=== PATIENT | male | born 1960 | race Caucasian/White ===

== ENCOUNTER 2023-05-16 16:44 | Emergency (ER) | payer OTHER ==
[~2023-05-16] VITALS: Ht 175.3 cm; Wt 83.9 kg
[2023-05-16 17:00] LABS: BASOPHILS 0.3 % (0-2); EOSINOPHILS 0.1 % (0-6); HEMATOCRIT 50.3 % (35.0-50.0); HEMOGLOBIN 17.3 g/dL (12.0-18.0); LYMPHOCYTES 7.5 % (24-44); MCH 33.6 (27-36); MCHC 34.4 g/dl (30-36); MCV 97.8 fl (81-99); MONOCYTES 7.6 % (0-12); NEUTROPHILS 84.5 % (39-80); PLATELET COUNT 207 K/uL (140-440); RBC 5.14 M/ul (4.3-5.7); RDW 12.9 (10.5-15.0)
[2023-05-16 17:21] LABS: ALBUMIN 3.3 g/dL (3.4-5.0); ALBUMIN/GLOBULIN RATIO 0.75 (1.1-2.4); ANION GAP 14.3 (7-21); BILIRUBIN, TOTAL 0.9 ng/dL (0.2-1.0); BUN/CREATININE RATIO 20.61 (6.0-28.6); CALCIUM 9.2 mg/dL (8.5-10.1); CREATININE, SERUM 0.97 mg/dL (0.70-1.30); MAGNESIUM 1.6 mg/dL (1.8-2.4); POTASSIUM 4.3 mmol/L (3.5-5.1); PROTEIN, TOTAL 7.7 g/dL (6.4-8.2)
[2023-05-16 17:43] LABS: INFLUENZA B NAA NEGATIVE (NEGATIVE); RESPIRATORY SYNCYTIAL VIR NAA NEGATIVE (NEGATIVE)
[2023-05-16] MEDS ORDERED: PREDNISONE20 MG PO (18:29)
[2023-05-16] MEDS ORDERED: DOXYCYCLINE HY100 MG PO (18:29)
[2023-05-16] MEDS ORDERED: VENTOLIN HFA18 GM INH (18:29)
[2023-05-16 18:47] VITALS: BP 143/92
--- NOTE | 2023-05-16 23:05 | EKG ---
[facility] [address] [facility] [place] [address] Signed Sinus tachycardia Otherwise normal ECG No previous ECGs available Confirmed by Ariel Nielsen MD () on 05/16/2023 11:04:56 PM Electronically Signed By: ARIEL NIELSEN MD 05/16/23 2305 PATIENT NAME: FAIZA DUGGAN Electrocardiogram DATE OF : 62 PHYSICIAN: ARIEL NIELSEN MD REPORT #: [id number] REPORT IS CONFIDENTIAL AND NOT TO BE RELEASED WITHOUT AUTHORIZATION
== END 2023-05-16 18:43 | disposition home or self-care (01) ==
LOC: ED 16:44
PROVIDERS: Emergency Medicine
DX: J44.1 Chronic obstructive pulmonary disease with (acute) exacerbation (principal); F17.200 Nicotine dependence, unspecified, uncomplicated; Z20.822 Contact with and (suspected) exposure to COVID-19
CPT/HCPCS: 36415; 71045; 80053; 83735; 83880; 84484; 85025; 87502; 93005; 93010; 94640; 99285-25; 99406; C9803; J7512; U0002

== ENCOUNTER 2023-12-18 07:27 | Day surgery (SDC) | payer MEDICARE, OTHER ==
[2023-12-16 16:08] VITALS: BP 133/72
[~2023-12-18] VITALS: Ht 175.3 cm; Wt 86.4 kg
[~2023-12-18 07:27] MED LIST: DOXYCYCLINE HY100 MG PO; IBLOOD GLUCOSE TEST STRIP 1 EA TEST VI PRN; LACTATED RINGER'S 1,000 ML IV SCH; LEVOFLOXACIN500 MG PO; LIDOCAINE HCL 1% 5 ML SDV INJ ONE; METRONIDAZOLE500 MG PO; MIDAZOLAM HCL 5 MG/5 ML VIAL IV PRN; PREDNISONE20 MG PO; VENTOLIN HFA18 GM INH; fentaNYL citrate 100 MCG/2 ML VIAL IV PRN; propofoL 200 MG/20 ML VIAL ONE
[2023-12-18 07:37] VITALS: BP 122/78
[2023-12-18] MEDS ORDERED: ADVIL200 M1 PO (07:41)
--- NOTE | 2023-12-18 09:16 | NUR ---
12/18/23 0916 Kelly,Parul 0910 PT ARRIVED TO PACU ON 10L VIA MASK, RESP EVEN AND UNLABORED BUT SHALLOW. ORAL AIRWAY IN PLACE, PT NONAROUABLE TO TECTILE STIMULI. VSS. 0914 O2 DECREASED TO 6L.
[2023-12-18 09:46] VITALS: BP 129/81
--- NOTE | 2023-12-18 10:25 | OR ---
[facility] [address] [place], [place] [address] Signed DATE OF OPERATION: 12/18/2023 SURGEON: Florence Garcia MD PREOPERATIVE DIAGNOSIS: Recent episode of sigmoid diverticulitis. POSTOPERATIVE DIAGNOSES: 1. Moderate sigmoid and left colon diverticulosis. 2. Narrow distal sigmoid colon. 3. 6 mm polyp at 40 cm in sigmoid colon. 4. 3 mm periappendiceal polypoid lesion at base of cecum. 5. 5 mm polyp, proximal right colon. 6. Moderate external hemorrhoids. PROCEDURES: Colonoscopy, hot biopsy and snare polypectomy. ESTIMATED BLOOD LOSS: None. INDICATIONS: Sunil is a 63-year-old gentleman, who has been a long-time smoker and has moderate to significant COPD based on his clinical symptoms. He said he can only work 15 minutes maybe an hour at the most in his house on his deck before he gets short of breath. He said he has cut his smoking way down. He said he is feeling better. He said he has never had pulmonary function test. He describes at least two years of generalized abdominal pain, bloating and cramping. He said it is worse after he eats. He said it is mostly on the left side. He can feel the waves of crampy abdominal pain followed by diarrhea. He does not have any nausea or vomiting. He said there is no blood. He came in the hospital on November 01, 2023. We admitted him overnight with diverticulitis and probably a small 2.6 cm abscess. It may involve the small loop of the terminal ileum. It was difficult to convince to come in the hospital. We want to go home the next morning. We send him home on two weeks of p.o. antibiotics. In the office, he tells me he is doing much better. He said all the crampy waves of pain are gone and he is having good bowel movements. He said he is able to eat regular food. He tells me there is no family history of colon cancer or polyps. He has two adult sons, who live here in [place] that are available to him. Otherwise, he is . He said he has no urinary symptoms. He had tried some dicyclomine without any improvement in the pain. He said the antibiotics were much better. In the office, I gave him a pamphlet on Electronically Signed By: FLORENCE GARCIA MD 12/18/23 1025 PATIENT NAME: SUNIL DUGGAN OPERATIVE REPORT DATE OF : 62 REPORT #: [id number] PHYSICIAN: FLORENCE GARCIA MD PCP: FLORENCIO GILLIAM PA-C REPORT IS CONFIDENTIAL AND NOT TO BE RELEASED WITHOUT AUTHORIZATION [facility] [address] [place] [id number] Signed colonoscopy. He has been given a brochure on diverticulosis as well. He understands the nature of the colonoscopy. There is risk including, but not limited to gas bloating, crampy abdominal pain, bleeding, perforation requiring surgery, and missed diagnosis. We also reviewed the written instructions for a bowel prep line by line. He was going to hold his ibuprofen 3 days prior to the procedure. A little Tylenol would be fine. He also understands the need for monitored anesthesia care given his rather significant COPD. He finally told me he does use an albuterol inhaler once in a while. Although, he tends to avoid doctors in general. He told me he has never had a CT scan of his chest to rule out lung cancer. We did ask for monitored anesthesia care given the above findings. He had expressed understanding and wished to proceed. He understands an adult person has to take him home afterwards. He said one of his sons would be available. He had expressed understanding and wished to proceed. PROCEDURE IN DETAIL: Sunil was taken into our endoscopy suite and placed in the left lateral decubitus position. He was given monitored anesthesia care, propofol infusion per our nurse pig machine operator. We can see on his preop blood work that his hemoglobin runs high and he has clubbing of his fingers consistent with his long history of smoking and COPD. A digital rectal exam was performed. He has moderate circumferential external hemorrhoids. He had good sphincter tone. Did not particularly assess his prostate gland. The adult colonoscope was introduced and advanced under direct visualization. It took a few minutes to get through his narrow distal sigmoid colon. After that, the colon opened up nicely and the camera passed quite readily up into the cecum itself. His prep was quite excellent. We could easily see the appendiceal orifice and ileocecal valve. We took pictures throughout for photodocumentation. We used a hot biopsy forceps to remove the two small polyps mentioned above. A 6 mm polyp back at 40 cm required the snare and we captured it to our scope for pathologic review. As we came back to the left colon down into the sigmoid colon, of course, he has moderate diverticula. They are moderate in size, moderate in number, scattered about. In the last 5 or 6 cm of his distal sigmoid colon is an area that is a little bit narrowed. His rectosigmoid junction right about 15 cm. This would be consistent with his body habitus. We retroflexed the scope and really no internal hemorrhoids. After this, the gas was suctioned out, colonoscope removed. Sunil tolerated the procedure quite well. RECOMMENDATIONS: I will see Sunil back in my office in 7 to 14 days to review his results. Florence Garcia MD Electronically Signed By: FLORENCE GARCIA MD 12/18/23 1025 PATIENT NAME: SUNIL DUGGAN OPERATIVE REPORT DATE OF : 62 REPORT #: [id number] PHYSICIAN: FLORENCE GARCIA MD PCP: FLORENCIO GILLIAM PA-C REPORT IS CONFIDENTIAL AND NOT TO BE RELEASED WITHOUT AUTHORIZATION [address] [place], [place] [address] Signed ALB/MODL /[id number] cc: RICO Baez MD Copies: FLORENCIO GILLIAM PA-C, ANDREW L MD ~ Electronically Signed By: FLORENCE GARCIA MD 12/18/23 1025 PATIENT NAME: SUNIL DUGGAN OPERATIVE REPORT DATE OF : 62 REPORT #: [id number] PHYSICIAN: FLORENCE GARCIA MD PCP: FLORENCIO GILLIAM PA-C REPORT IS CONFIDENTIAL AND NOT TO BE RELEASED WITHOUT AUTHORIZATION
--- NOTE | 2023-12-23 20:17 | PATH ---
[facility] [address] [facility] [place] [address] Signed SPECIMEN(S): A SIGMOID POLYP AT 40 CM SPECIMEN(S): B CECUM COLON POLYP SPECIMEN(S): C PROXIMAL ASCENDING/RIGHT POLYP SPECIMEN SOURCE: A. SIGMOID POLYP AT 40 CM B. CECUM COLON POLYP C. PROXIMAL ASCENDING/RIGHT POLYP CLINICAL HISTORY: Diverticulosis FINAL PATHOLOGIC DIAGNOSIS: A. Sigmoid polyp at 40 cm: - Tubular adenoma (one fragment). B. Cecum colon polyp: - Serrated polyp/adenoma (two fragments). C. Proximal ascending/right polyp: - Tubular adenoma (one fragment). JVR:albert MICROSCOPIC EXAMINATION: Histologic sections of all submitted blocks are examined by light microscopy. These findings, together with the gross examination, support the pathologic diagnosis. GROSS DESCRIPTION: A. The specimen, labeled and designated "Grat[place], sigmoid polyp at 40 cm," is received in formalin and consists of a polyp of winter-brown soft tissue (0.6 x 0.4 x 0.4 cm). The resection margin is inked blue, and the tissue is bisected to reveal winter soft cut surfaces. The specimen is submitted entirely in cassette (A1). B. The specimen, labeled and designated "Gloria, cecum colon polyp," is received in formalin and consists of two winter soft tissue fragments, ranging from 0.2-0.3 cm. Entirely submitted in (B1). C. The specimen, labeled and designated "[place], proximal ascending/right polyp," is received in formalin and consists of one winter soft tissue fragment, 0.2 cm. Entirely submitted in (C1). VB (under the direct supervision of a pathologist) The Gross Description was prepared using a voice recognition system. The report was reviewed for accuracy; however, sound-alike word errors, addition and/or PATIENT NAME: FAIZA DUGGAN PATHOLOGY DATE OF : 62 REPORT #: [id number] PHYSICIAN: JENNIFER PATHOLOGY PCP: FLORENCIO GILLIAM PA-C REPORT IS CONFIDENTIAL AND NOT TO BE RELEASED WITHOUT AUTHORIZATION [facility] [address] [place] [address] [place], [place] [address] Signed deletions may occur. If there is any question about this report, please contact Client Services. PERFORMING LABORATORY: Technical component was performed by [facility], [address] [place] [id number] (CLIA# [id number]). Professional interpretation was performed by [facility] - [facility], [address] [place] [id number] (CLIA#: [id number]). Diagnostician: Hosea Chavira MD Pathologist Electronically Signed 12/23/2023 Copies: ~ PATIENT NAME: FAIZA DUGGAN PATHOLOGY DATE OF : 62 REPORT #: [id number] PHYSICIAN: JENNIFER GIPSON PCP: FLORENCIO GILLIAM PA-C REPORT IS CONFIDENTIAL AND NOT TO BE RELEASED WITHOUT AUTHORIZATION
== END 2023-12-18 09:54 | disposition home or self-care (01) ==
LOC: DS 07:27
PROVIDERS: ATTEND Colon & Rectal Surgery
PROC: 0DBE8ZX Excision of Large Intestine, Via Natural or Artificial Opening Endoscopic, Diagnostic (ICD-10-PCS; principal; 2023-12-18 08:10)
DX: D12.5 Benign neoplasm of sigmoid colon (principal); D12.0 Benign neoplasm of cecum; D12.2 Benign neoplasm of ascending colon; K57.30 Diverticulosis of large intestine without perforation or abscess without bleeding; K63.89 Other specified diseases of intestine; K64.4 Residual hemorrhoidal skin tags; M54.50 Low back pain, unspecified; F17.200 Nicotine dependence, unspecified, uncomplicated; J44.9 Chronic obstructive pulmonary disease, unspecified; Z88.2 Allergy status to sulfonamides; Z79.899 Other long term (current) drug therapy
CPT/HCPCS: 00811; J2704; J7121